=== PATIENT | female | born 1990 ===

== ENCOUNTER 2018-02-26 06:37 | Outpatient (CLI) | payer BC ==
--- NOTE | 2018-02-26 08:24 | ULT ---
ULTRASOUND ABDOMEN: History: Right upper quadrant pain. FINDINGS: The liver, spleen, gallbladder, kidneys, and visualized portions of the pancreas, aorta, and IVC appe ar normal. The common ducts measure 3 mm in diameter. No free fluid is seen. IMPRESSION: Normal exam. POS: [facility]
== END 2018-02-26 06:38 | disposition home or self-care (01) ==
LOC: BICULT 06:37
PROVIDERS: ATTEND Internal Medicine
DX: R10.11 Right upper quadrant pain (principal); R63.4 Abnormal weight loss
CPT/HCPCS: 76700